=== PATIENT | male | born 1940 | race Caucasian/White ===

== ENCOUNTER → 2016-06-20 | Emergency (ER) | payer OTHER ==
[~2016-06-20] VITALS: Ht 180.3 cm; Wt 70.6 kg
[~2016-06-20] MED LIST: ASPIR 8181 M1 PO; AUGMENTIN875 MG PO; DONEPEZIL HCL10 MG PO; FOLBIC RF TABL1 EACH PO
[2016-06-20 20:53] VITALS: BP 121/67
== END | disposition home or self-care (01) ==
LOC: EME 17:45 → EXP 17:45
PROC: 0HQ4XZZ Repair Neck Skin, External Approach (ICD-10-PCS; principal; 2016-06-20)
DX: S11.95XA Open bite of unspecified part of neck, initial encounter (principal); W54.0XXA Bitten by dog, initial encounter; Z87.891 Personal history of nicotine dependence; Z79.82 Long term (current) use of aspirin
CPT/HCPCS: 99281; 99284

== ENCOUNTER 2017-04-08 01:06 | Emergency (ER) | payer OTHER ==
[~2017-04-08] VITALS: Ht 180.3 cm; Wt 65.8 kg
[2017-04-08 01:47] LABS: HEMATOCRIT 39.8 % (38.0-50.0); MCH 30.3 PG (29.0-34.0); MCHC 34.2 G/DL (30.0-36.0); MCV 88.6 FL (86-99); MEAN PLAT.VOLUME 10.3 uM^3 (9.0-12.4); PLATELET COUNT 163 K/uL (156-360); RBC DIS.WIDTH-CV 12.5 % (11.8-14.6); RBC DIS.WIDTH-SD 41.1 % (39-53); RED BLOOD COUNT 4.49 M/uL (4.00-5.50); WHITE BLOOD COUNT 6.1 K/uL (4.1-10.2)
[2017-04-08 01:58] LABS: CHLORIDE 109 mEq/L (99-109); SODIUM 141 mEq/L (136-147)
[2017-04-08 02:01] LABS: GLUCOSE 131 mg/dL (70-99)
[2017-04-08 02:02] LABS: ANION GAP 8 MEQ/L (2-14); TOTAL BILIRUBIN 0.3 mg/dL (0.0-1.0)
[2017-04-08 02:04] LABS: ALKALINE PHOSPHATASE 69 IU/L (3-129); GFR ESTIMATE (CALCULATED) 57 mL/min/ (58.99-99999); SERUM ETHYL ALCOHOL < 10 mg/dL
[2017-04-08 02:05] LABS: UREA NITROGEN (BUN) 14 mg/dL (9-23)
[2017-04-08 02:08] LABS: CREATINE KINASE 165 IU/L (1-294); LIPASE 13 U/L (1.0-51.0); TOTAL CK 165 IU/L (1-294)
[2017-04-08 02:14] LABS: TROP-I INTERPRETATION NEGATIVE; TROPONIN-I 0.01 ng/mL (0.0-0.30)
[2017-04-08 02:15] LABS: CK-MB 2.4 ng/mL (0.0-4.9)
[2017-04-08] MEDS ORDERED: KEPPRA500 MG PO (03:34)
[2017-04-08 04:16] VITALS: BP 116/64
== END 2017-04-08 05:08 | disposition home or self-care (01) ==
LOC: EME → EDBD 01:06 → EME 04:18
PROVIDERS: Emergency Medicine
DX: G40.909 Epilepsy, unspecified, not intractable, without status epilepticus (principal); S01.552A Open bite of oral cavity, initial encounter; X58.XXXA Exposure to other specified factors, initial encounter; Z87.891 Personal history of nicotine dependence
CPT/HCPCS: 70450; 80053; 81003; 82550; 82553; 83690; 84484; 85027; 93005; 99281; 99284; G0480; J1953; J7050